=== PATIENT | female | born 1940 | race Caucasian/White ===

== ENCOUNTER 2017-02-14 18:38 | Emergency (ER) | payer MEDICARE ==
[2017-02-14 18:43] VITALS: RESP 18
--- NOTE | 2017-02-14 19:18 | ED ---
General Adult HPI - General Chief complaint: Extremity Injury, Upper Stated complaint: Fall Time Seen by Provider: 02/14/17 19:00 Source: EMS, RN notes reviewed Mode of arrival: EMS Limitations: no limitations - History of Present Illness Initial comments: This is a 76-year-old female presents to the emergency department complaining of tripping and falling on her right shoulder. Patient states ever since then she's been able to move her shoulder because it hurts too much. Patient denies any elbow pain patient denies any wrist or hand pain. Patient denies any clavicle pain. Patient denies any neck or head injury. Patient denies chest pain or back pain. Patient denies any lower extremity pain at this time. Patient states the shoulder is swollen. - Related Data Home Medications Medication Instructions Recorded Confirmed Aspirin [Adult Low Dose Aspirin EC] 81 mg PO DAILY 02/14/17 02/14/17 Atorvastatin [Lipitor] 20 mg PO HS 02/14/17 02/14/17 Calcium Carbonate/Vitamin D3 1 tab PO DAILY 02/14/17 02/14/17 [Calcium 500-Vit D3 600 Tablet] Cholecalciferol [Vitamin D3] 4,000 unit PO DAILY 02/14/17 02/14/17 Cranberry 300mg 1 tab PO BID 02/14/17 02/14/17 Levothyroxine Sodium [Synthroid] 25 mcg PO DAILY 02/14/17 02/14/17 Omeprazole [PriLOSEC] 20 mg PO DAILY 02/14/17 02/14/17 Ubidecarenone [Co Q-10] 100 mg PO DAILY 02/14/17 02/14/17 Previous Rx's Medication Instructions Recorded Hydrocodone/Acetaminophen [Edon 1 each PO Q4HR PRN #20 tab 02/14/17 5-325] Allergies Allergy/AdvReac Type Severity Reaction Status Date / Time fluorescein Allergy Rash/Hives Verified 02/14/17 19:00 ciprofloxacin [From Cipro] AdvReac Nausea Verified 02/14/17 19:00 clarithromycin AdvReac Nausea Verified 02/14/17 19:00 epinephrine AdvReac RACING Verified 02/14/17 19:00 HEART oxybutynin AdvReac BLURRED Verified 02/14/17 19:00 VISION sulfamethoxazole AdvReac Nausea Verified 02/14/17 19:00 [From Bactrim] trimethoprim [From Bactrim] AdvReac Nausea Verified 02/14/17 19:00 Review of Systems ROS Statement: Those systems with pertinent positive or pertinent negative responses have been documented in the HPI. ROS Other: All systems not noted in ROS Statement are negative. Past Medical History Past Medical History: Hyperlipidemia, Thyroid Disorder History of Any Multi-Drug Resistant Organisms: None Reported Past Surgical History: Cholecystectomy, Hernia Repair Past Psychological History: No Psychological Hx Reported Smoking Status: Never smoker Past Alcohol Use History: None Reported Past Drug Use History: None Reported General Exam - General Exam Comments Initial Comments: GENERAL Patient is well-developed and well-nourished. Patient is in mild distress. EYES Patient's pupils are equal and round. Extraocular motion is intact SKIN Unremarkable NEURO The patient is alert and oriented 3 PYSCH Patient has normal interpersonal interactions. MUSCULOSKELETAL Right shoulder is tender laterally and anteriorly in the area is swollen Limitations: no limitations Course Vital Signs 02/14/17 18:39 Temperature 97 F L Pulse Rate 105 H Respiratory 18 Rate Blood Pressure 174/81 O2 Sat by Pulse 100 Oximetry Medical Decision Making - Medical Decision Making Patient's chest x-ray shows a comminuted proximal right humeral fracture I spoke with the PA on for Dr. Mcgill and they wanted the patient to have a sling and sent home and follow-up with them on Friday morning. Disposition Clinical Impression: Fracture of humerus Disposition: HOME SELF-CARE Instructions: Arm Fracture in Adults (ED) Prescriptions: Hydrocodone/Acetaminophen [Edon 5-325] 1 each PO Q4HR PRN #20 tab PRN Reason: Pain Referrals: Nonstaff,Physician [Primary Care Provider] - 1-2 days Time of Disposition: 20:37
--- NOTE | 2017-02-14 19:46 | XR ---
EXAMINATION TYPE: XR shoulder complete RT DATE OF EXAM: 02/14/2017 7:33 PM COMPARISON: NONE HISTORY: Shoulder pain TECHNIQUE: 3 views FINDINGS: There is a comminuted fracture of the humeral neck and greater tuberosity of the humerus. T here is no dislocation. Scapula appears intact. IMPRESSION: Comminuted humeral neck fracture.
[2017-02-14] MEDS ORDERED: HYDROmorphone 1 MG/ML 1 ML SYRINGE IVP STA (20:10)
[2017-02-14] MEDS ORDERED: ONDANSETRON 4 MG/2 ML VIAL IVP STA (20:11)
[2017-02-14 21:15] VITALS: BP 168/85; PULSE 78; TEMP 97.9
== END 2017-02-14 21:17 | disposition home or self-care (01) ==
LOC: EC 18:38
DX: S42.201A Unspecified fracture of upper end of right humerus, initial encounter for closed fracture (principal); E07.9 Disorder of thyroid, unspecified; E78.5 Hyperlipidemia, unspecified; Z88.1 Allergy status to other antibiotic agents; Z88.2 Allergy status to sulfonamides; Z88.8 Allergy status to other drugs, medicaments and biological substances; Z79.82 Long term (current) use of aspirin; Z79.899 Other long term (current) drug therapy; W01.0XXA Fall on same level from slipping, tripping and stumbling without subsequent striking against object, initial encounter
CPT/HCPCS: 99284; 96374; 96375; 73030; J2405; J1170